=== PATIENT | female | born 1945 | race Caucasian/White ===

== ENCOUNTER → 2023-11-15 13:08 | Outpatient (REF) | payer MEDICARE, OTHER, SELFPAY | LOC: RAD 13:08 | PROVIDERS: ATTENDING PHYSICIAN Surgery Vascular Surgery; FAMILY PHYSICIAN Family Medicine | DX: I65.23 Occlusion and stenosis of bilateral carotid arteries (principal) | CPT/HCPCS: 93880 ==

== ENCOUNTER → 2023-12-25 09:47 | Outpatient (REF) | payer MEDICARE, OTHER, SELFPAY | LOC: RAD 09:47 | PROVIDERS: ATTENDING PHYSICIAN Family Medicine | DX: K58.0 Irritable bowel syndrome with diarrhea (principal) | CPT/HCPCS: 74176 ==

== ENCOUNTER 2024-01-10 12:13 | Emergency (ER) | payer MEDICARE, OTHER, SELFPAY ==
[2024-01-10 12:23] VITALS: BP 169/73
--- NOTE | 2024-01-10 21:24 | ED.MUSCINJ ---
HPI-Injury
General
Chief Complaint: Musculo-Skeletal Complaint
Source: patient
Exam Limitations: none
Time Seen by Provider: 01/10/24 13:15
Nursing documentation reviewed up to this point in time: agreed with
Travel History
Have you had any contact with someone who has COVID-19?: No
Do you have any symptoms of coronavirus? Fever > 100 degrees, chills, cough, shortness of breath, sore throat, loss of taste or smell, muscle aches, or headache?: No
History of Present Illness-Injury
Is this injury a work related problem?: No
Is pt an associate of [facility]?: No
Initial Injury comments:
Patient to ED wtih complaint of left knee. States she went dancing on this weekend and felt a pop and pain to her knee while walking to dance floor. No prior history of same. Brought to ED by spouse for eval.
Past History
Past History
ED Past Medical History: HTN, Hypercholesterolemia and Other
ED Past Surgical History: Gynecological and Other
Social History
Tobacco: Non-smoker
Alcohol: None
Drug: None
Personal:
Living: with family
Employment: Retired
Family History
Family History: CAD (Mother with coronary artery disease in her 60s however she was obese and a smoker)
Review of Systems
Review of Systems
Allergies reviewed?: Yes
All Other Systems: ROS reviewed and negative except as documented in HPI and ROS
Constitutional: Reports no symptoms
Musculoskeletal: Reports joint pain (Pain to left knee)
Skin: Reports no symptoms
Neurological: Reports no symptoms
Psychiatric: Reports no symptoms
Musculoskeletal Injury Exam
Musculoskeletal Injury Exam
Left Knee:
Pain with Movement?: Moderate
Tender to palpation?: Moderate
Soft tissue swelling?: None
External deformity and angulation?: None
Joint effusion?: None
Contusion?: None
Hematoma-local bleeding into tissue?: None
Strain- Sprain- Tear (Connective tissue injury)?: Moderate
Crepitus with movement?: No
Joint instability?: No
Malalignment/deformity?: No
Range of motion: Limited
Distal skin color and temperature: normal-warm & good color
Capillary Refill: normal
Normal distal neurovascular exam?: Yes
Phy Exam
General Physical Exam
General Presentation: well appearing and no apparent distress
General age: appears stated age
General Skin: warm and dry
General Habitus: normal
General Mental: alert
Musculoskeletal Exam
Musculoskeletal Exam: neuro vasc intact
Skin Exam
Skin Exam: normal color, warm/dry and no rash
Psychiatric Exam
Psychiatric Exam: normal mood/affect
Injury Course
Orders/Labs/Results
Orders:
Orders
01/10/24 12:25
Knee, Left 4 or More Views [CR Knee - Left 4 Or More View*] Urgent
Comment:
Reason For Exam: pain/injury
01/10/24 14:59
Knee Immobilizer Left-Treatmen ONCE
*Radiology
Radiology exam reviewed: radiology read reviewed
*Pulse Oximetry
Patient hypoxic: no
*Critical Care Note
Total Time (30-74mins, 75-104mins- exclusive of procedures): Not Applicable
ED Attending Note
-
Portions of this chart may have been created with voice recognition software.� Occasional wrong word or��sound alike� substitutions may have occurred due to the inherent limitations of voice recognition software.
Discharge Plan
Departure
Patient Disposition: Home (Routine Discharge)
Date of Disposition: 01/10/24
Time of Disposition: 14:59
Patient with high blood pressure during this ER visit?: No
Condition: Good
Covid-19: Not Applicable
Discharge Problem:
Knee sprain
Instructions: Knee Immobilizer (DC), Knee Sprain (DC), Ibuprofen, Using Cold for Pain
Prescriptions:
No Action
Fish Oil Capsule
1,200 mg PO DAILY
rosuvastatin 5 mg Tablet
5 mg PO DAILY
berberine-herbal comb no.18 Capsule
PO DAILY
Referrals:
Mikaela Rae DO [Active] - Next open appointment
Jim Contreras DO [Family Provider] -
Interventions
Interventions:
*Risk Screen - Suicide Last Done: 01/10/24 12:23
*Neglect/Abuse Screening Last Done: 01/10/24 12:23
*ED COVID-19 Vaccine History Last Done: 01/10/24 12:23
*Nursing Disposition Last Done: 01/10/24 15:18
ED-Musculoskeletal Assessment Last Done: 01/10/24 15:17
Discharge Date and Time
Discharge Date/Time: 01/10/24 15:18
Print Language: SLOVENIAN
== END 2024-01-10 15:18 | disposition home or self-care (01) ==
LOC: EMR 12:13
PROVIDERS: EMERGENCY PHYSICIAN Emergency Medicine; FAMILY PHYSICIAN Family Medicine
DX: S83.92XA Sprain of unspecified site of left knee, initial encounter (principal); X58.XXXA Exposure to other specified factors, initial encounter; Y93.01 Activity, walking, marching and hiking; I10 Essential (primary) hypertension; E78.00 Pure hypercholesterolemia, unspecified; Z86.73 Personal history of transient ischemic attack (TIA), and cerebral infarction without residual deficits
CPT/HCPCS: 99283; 29505; 73564

== ENCOUNTER → 2024-01-21 16:01 | Outpatient (REF) | payer MEDICARE, OTHER, SELFPAY | LOC: PAVMRI 16:01 | PROVIDERS: ATTENDING PHYSICIAN Physician Assistant; FAMILY PHYSICIAN Family Medicine | DX: M25.562 Pain in left knee (principal) | CPT/HCPCS: 73721 ==

== ENCOUNTER → 2024-02-02 12:57 | Outpatient (REF) | payer MEDICARE, OTHER, SELFPAY | LOC: RCS 12:57 | PROVIDERS: ATTENDING PHYSICIAN Orthopaedic Surgery | DX: Z01.818 Encounter for other preprocedural examination (principal) | CPT/HCPCS: 93005 ==

== ENCOUNTER → 2024-02-25 16:00 | Outpatient (REF) | payer MEDICARE, OTHER, SELFPAY | LOC: DHSLP 16:00 | PROVIDERS: ATTENDING PHYSICIAN Internal Medicine Critical Care Medicine; FAMILY PHYSICIAN Family Medicine | DX: G47.33 Obstructive sleep apnea (adult) (pediatric) (principal) | CPT/HCPCS: 95806 ==

== ENCOUNTER → 2024-07-28 10:47 | Day surgery (SDC) | payer MEDICARE, OTHER, SELFPAY ==
[2024-07-28 11:50] LABS: Hematocrit 40.8 % (37.0-47.0); Mean Corp Hgb Conc. 31.9 g/dL (33.0-37.0); Mean Corpuscular Hgb 29.2 pg (27.0-31.0); Mean Corpuscular Volume 91.7 fL (81.0-99.0); Mean Platelet Volume 8.6 fL (7.4-10.4); Platelet Count 334 10^3/uL (130-400); Red Blood Cell Count 4.45 10^6/uL (4.20-5.40); Red Cell Dist. Width 12.7 % (11.5-14.5); White Blood Cell Count 5.3 10^3/uL (4.8-10.8)
== END ==
LOC: SDSPAT 10:47
PROVIDERS: ATTENDING PHYSICIAN Orthopaedic Surgery; FAMILY PHYSICIAN Family Medicine
DX: Z01.810 Encounter for preprocedural cardiovascular examination (principal); Z01.812 Encounter for preprocedural laboratory examination
CPT/HCPCS: 93005; 36415; 85027

== ENCOUNTER 2024-08-10 06:32 | Day surgery (SDC) | payer MEDICARE, OTHER, SELFPAY ==
[2024-07-28 11:08] VITALS: BMI 24.1
[2024-08-10 10:24] VITALS: BMI 24.1
[2024-08-10 10:25] VITALS: BP 185/97
[2024-08-10] MEDS: CELEBREX 200 MG PO (10:44)
[2024-08-10] MEDS: TYLENOL 1000 MG PO (10:44)
[2024-08-10] MEDS: NORMOSOL-R/PLASMALYTE-A 1000 IV (10:45)
[2024-08-10 14:00] VITALS: BP 157/73; BP 185/97
[2024-08-10 14:01] VITALS: BP 157/73
[2024-08-10 15:00] VITALS: BP 134/70
[2024-08-10 15:25] VITALS: BP 128/74
== END 2024-08-10 16:26 | disposition home or self-care (01) ==
LOC: SDS 06:32
PROVIDERS: ATTENDING PHYSICIAN Orthopaedic Surgery; FAMILY PHYSICIAN Family Medicine
DX: M75.112 Incomplete rotator cuff tear or rupture of left shoulder, not specified as traumatic (principal)
CPT/HCPCS: 29827; C1713

== ENCOUNTER 2024-09-04 22:25 | Observation (INO) | payer MEDICARE, OTHER, SELFPAY ==
[2024-09-04] VITALS (26 sets, daily range): BP systolic 123–222; BP diastolic 43–156; BMI 25.0
--- NOTE | 2024-09-04 15:21 | ED.GENMED ---
ED Provider Triage
<Shailesh Pena PA-C - Last Filed: 09/04/24 15:22>
-
Patient seen by provider in Triage?: Seen in Triage
Attestation: A medical screening examination has been initiated by a qualified medical provider. Based on the assessment performed at this time, it has been determined that an emergent medical condition may exist and the patient has been informed
that further medical evaluation and possible additional diagnostic testing may be needed.
HPI: 78-year-old female on telmisartan 40 mg daily presents with dizziness and elevated blood pressure onset at 8 AM when she woke up. She feels that she is wobbly from [id number] when she walks and turns her head too quickly she feels dizzy.
There is no aphasia or dysarthria at triage. Blood pressure high at triage 222/134. At this point we are out of TNK window ordered CT scan of head labs EKG and requested next to be seen given her elevated blood pressure
GENERAL: Alert , in no apparent distress
EYE: No visual abnormalities.
NECK: Trachea midline
ENT: No visible abnormalities.
LUNGS: No acute respiratory distress
NEUROLOGICAL: Alert and oriented
SKIN: Skin intact. No visible changes.
MUSCULOSKELETAL: Moving extremities normally
PSYCH: Normal and appropriate interaction.
This is a medical evaluation conducted in person to initiate diagnostic evaluation and provide initial therapeutics. Please see further documentation by the treating clinician.
History of Present Illness
<Shailesh Pena PA-C - Last Filed: 09/04/24 15:22>
General
Chief Complaint: Blood Pressure Problem
Time Seen by Provider: 09/04/24 15:30
<Jp Parks MD - Last Filed: 09/04/24 20:28>
General
Source: patient and spouse
Exam Limitations: none
Nursing documentation reviewed up to this point in time: agreed with
History of Present Illness
History of Present Illness:
78-year-old female with a past medical history of hypertension, hyperlipidemia who presents to the emergency department with her for evaluation of dizziness. Patient reports symptoms started when she woke up this morning. She says she woke
up at around 8 AM and felt 'not quite right'�she describes feeling wobbly and having significant nausea with head movement�'it felt like I was shaking my head [id number] but I was not.' She denies any associated headache. She denies any loss of
vision. She denies any speech issues. No facial droop noted. No weakness or numbness in extremities reported. She denies having had similar symptoms in the past. She says she checked her blood pressure and was elevated to 160s; she decided to
take an extra dose of her telmisartan at around 11 AM but blood pressure was actually increasing and symptoms were not resolving and so she came to the ER to be evaluated.
Past History
<Shailesh Pena PA-C - Last Filed: 09/04/24 15:22>
Past History
ED Past Medical History: HTN, Hypercholesterolemia and Other
ED Past Surgical History: Gynecological and Other
Social History
Tobacco: Non-smoker
Alcohol: None
Drug: None
Personal:
Living: with family
Employment: Retired
Family History
Family History: CAD (Mother with coronary artery disease in her 60s however she was obese and a smoker)
Review of Systems
<Jp Parks MD - Last Filed: 09/04/24 20:28>
Review of Systems
All Other Systems: ROS reviewed and negative except as documented in HPI and ROS
Constitutional: Denies fever
Respiratory: Denies cough or trouble breathing
Cardiac: Denies chest pain or palpitations
ABD/GI: Reports nausea; Denies abdominal pain or vomiting
: Denies flank pain
Musculoskeletal: Denies neck pain or back pain
Neurological: Reports dizzy; Denies headache, weakness or numbness
Phy Exam
<Jp Parks MD - Last Filed: 09/04/24 20:28>
Physical Exam
Physical Exam:
General: Awake, alert, oriented x3; no acute distress
Head: Normocephalic, atraumatic
Eyes: Conjunctiva normal, EOMI with rightward nystagmus, no rotary or vertical nystagmus
Throat: Airway intact, handling secretions
Neck: Trachea midline, supple without meningismus
Lungs: Clear to auscultation bilaterally, no wheezing, rales, rhonchi
Heart: Tachycardia with regular rhythm, no murmurs, gallops, or rubs
Abd: Soft, non distended, nontender
Neuro: Cranial nerves intact 2 through 12, speech fluid no dysarthria or aphasia, no limb ataxia, motor and sensory intact upper and lower extremities
Skin: no rash
Extremities: Warm and well-perfused with brisk capillary refill
Scores
<Jp Parks MD - Last Filed: 09/04/24 20:28>
NIH Stroke Score
Level of Consciousness: 0 - Alert
LOC Questions: 0-Answers both correctly
LOC Commands: 0-Performs both correctly
Best Horizontal Gaze: 0-Normal
Visual Herrera: 0=Normal, no visual loss
Facial Palsy: 0=Normal, symmetrical
Motor - Right Arm: 0=No drift 10 seconds
Motor - Left Arm: 0=No drift 10 seconds
Motor - Right Le-No drift 5 seconds
Motor - Left Le-No drift 5 seconds
Limb Ataxia: 0-Absent
Sensation: 0-Normal
Best Language: 0-No aphasia
Dysarthria: 0-Normal
Extinction and Inattention: 0-No abnormality
Total Score:: 0
Thrombolytic Contraindication
Inclusion and Exclusion criteria reviewed: Yes
Reasons for NON-Tx with Thrombolytics ABSOLUTE Exclusions: Greater than 4.5 hrs from onset of sxs
Heart Failure Risk
Heart Failure Risk Score: Not Applicable
Heart Score for Chest Pain Patients
STEMI patient?: Not applicable
Withdrawal Assessment of Alcohol
Withdrawal Assessment Completed?: Not applicable
Course
<Shailesh Pena PA-C - Last Filed: 09/04/24 15:22>
Orders/Labs/Results
Orders:
Orders
09/04/24 15:17
Electrocardiogram (*1) Urgent
Reason for Study: Vertigo / Dizzy
EKG- Treatment ONCE
09/04/24 15:47
NEUROLOGY CONSULT Urgent
Consulting Provider: Jesse Lipscomb
Was physician already notified: Yes
Labetalol HCl [Trandate] 10 mg IV NOW STA
09/04/24 15:53
Cardiovascular Evaluation Urgent
Comment: ADD ON
Complete Blood Count/With Diff Urgent
Comprehensive Metabolic Panel Urgent
Erythrocyte Sed Rate Urgent
Comment: ADD ON
Ferritin Routine
Comment: ADD ON
Folate Routine
Comment: ADD ON
TSH Reflex To Free T4 Routine
Comment: ADD ON
Vitamin B12 Routine
Comment: ADD ON
09/04/24 16:23
CT Head & Neck Angio W/wo IV Routine
Comment:
Reason For Exam: stenosis
MR Brain Without Contrast Routine
Comment:
Reason For Exam: dizziness
Recent pill cam endoscopy?: No
09/04/24 16:24
Add On- LAB Routine
Comments:: Please add to today's labs or draw as routine
Tests Added?: TSH reflex, Ferritin, Folate, Vit. B12, ESR
09/04/24 17:04
diazePAM [Valium Injection] 2 mg IV NOW STA
09/04/24 19:16
Add On- LAB Urgent
Tests Added?: lipid profile
09/04/24 20:19
Aspirin 325 mg PO NOW STA
Abnormal Lab Results
09/04/24 09/04/24
15:20 15:53
MCHC 32.4 L g/dL
(33.0-37.0)
Lymphocytes % 20.4 L %
(20.5-51.1)
ESR 23 H mm/hour
(0-20)
Creatinine 0.5 L mg/dL
(0.6-1.0)
Glucose 148 H mg/dl
(70-99)
Triglycerides 230 H mg/dl
(10-149)
Total Cholesterol 370 H mg/dl
(50-199)
VLDL Cholesterol, Calc 46 H mg/dl
(0-30)
POC Glucose 131 H mg/dl
(70-99)
09/04/24 15:53
09/04/24 15:53
Vital Signs
Initial and Last Documented VS:
Initial Vital Signs
Temp Pulse Resp BP Pulse Ox
36.8 C 108 18 222/134 97
09/04/24 15:15 09/04/24 15:15 09/04/24 15:15 09/04/24 15:15 09/04/24 15:15
Last Documented Vital Signs
Temp Pulse Resp BP Pulse Ox
36.8 C 71 12 132/58 98
09/04/24 15:15 09/04/24 17:30 09/04/24 17:30 09/04/24 17:30 09/04/24 17:30
<Jp Parks MD - Last Filed: 09/04/24 20:28>
Orders/Labs/Results
Orders:
Orders
09/04/24 15:17
Electrocardiogram (*1) Urgent
Reason for Study: Vertigo / Dizzy
EKG- Treatment ONCE
09/04/24 15:47
NEUROLOGY CONSULT Urgent
Consulting Provider: Jesse Lipscomb
Was physician already notified: Yes
Labetalol HCl [Trandate] 10 mg IV NOW STA
09/04/24 15:53
Cardiovascular Evaluation Urgent
Comment: ADD ON
Complete Blood Count/With Diff Urgent
Comprehensive Metabolic Panel Urgent
Erythrocyte Sed Rate Urgent
Comment: ADD ON
Ferritin Routine
Comment: ADD ON
Folate Routine
Comment: ADD ON
TSH Reflex To Free T4 Routine
Comment: ADD ON
Vitamin B12 Routine
Comment: ADD ON
09/04/24 16:23
CT Head & Neck Angio W/wo IV Routine
Comment:
Reason For Exam: stenosis
MR Brain Without Contrast Routine
Comment:
Reason For Exam: dizziness
Recent pill cam endoscopy?: No
09/04/24 16:24
Add On- LAB Routine
Comments:: Please add to today's labs or draw as routine
Tests Added?: TSH reflex, Ferritin, Folate, Vit. B12, ESR
09/04/24 17:04
diazePAM [Valium Injection] 2 mg IV NOW STA
09/04/24 19:16
Add On- LAB Urgent
Tests Added?: lipid profile
09/04/24 20:19
Aspirin 325 mg PO NOW STA
Abnormal Lab Results
09/04/24 09/04/24
15:20 15:53
MCHC 32.4 L g/dL
(33.0-37.0)
Lymphocytes % 20.4 L %
(20.5-51.1)
ESR 23 H mm/hour
(0-20)
Creatinine 0.5 L mg/dL
(0.6-1.0)
Glucose 148 H mg/dl
(70-99)
Triglycerides 230 H mg/dl
(10-149)
Total Cholesterol 370 H mg/dl
(50-199)
VLDL Cholesterol, Calc 46 H mg/dl
(0-30)
POC Glucose 131 H mg/dl
(70-99)
09/04/24 15:53
09/04/24 15:53
Vital Signs
Initial and Last Documented VS:
Initial Vital Signs
Temp Pulse Resp BP Pulse Ox
36.8 C 108 18 222/134 97
09/04/24 15:15 09/04/24 15:15 09/04/24 15:15 09/04/24 15:15 09/04/24 15:15
Last Documented Vital Signs
Temp Pulse Resp BP Pulse Ox
36.8 C 71 12 132/58 98
09/04/24 15:15 09/04/24 17:30 09/04/24 17:30 09/04/24 17:30 09/04/24 17:30
<Jp Parks MD - Last Filed: 09/04/24 20:28>
MDM/Problems Addressed
Differential Diagnosis Includes:
Peripheral vertigo�BPPV, labyrinthitis, eustachian tube dysfunction, etc; central vertigo must be considered causes would include brain mass, brain bleed, ischemic stroke, dissection, hypertensive crisis, etc
MDM/Problems Addressed:
78-year-old female presents to the emergency room for evaluation of vertiginous symptoms that started this morning when she woke up around 8 AM. Associated with marked hypertension. Blood pressure 222/134 on arrival, heart rate 108. Rest of
vitals acceptable. Physical exam as above. With wake-up symptoms at 8 AM patient is outside window for tenecteplase even in case of stroke�for this reason no stroke alert was called. Her clinical picture actually seems more consistent with
peripheral vertigo with clear positional component and isolated unidirectional nystagmus however with her marked hypertension and stroke risk factors I do think this diagnosis needs to be considered. Will plan to place an IV check labs including a
CBC and a CMP. Check an EKG. Check CT head. Will treat blood pressure and provide IV Valium for treatment as well. Case discussed with neurology for consultation.
Discussed with neurology who added CTA of the head and neck, agreed with blood pressure control, recommended aspirin pending results of CT, admission to rule out stroke.
CTA head and neck negative for any acute pathology. Blood pressure has greatly improved but not normalized down to 154/100. Will plan to admit for blood pressure monitoring, MRI rule out stroke. Will dose with aspirin. Case discussed with
hospitalist for admission.
Chronic conditions affecting care:
Hypertension, hyperlipidemia
Acute Exacerbation and/or Progression of Chronic Illness:
Acutely hypertensive treated with labetalol
Acute Exacerbation and/or Progression of Chronic Illness: HTN
<Jp Parks MD - Last Filed: 09/04/24 20:28>
*Radiology
Radiology exam reviewed: radiology read reviewed
*Pulse Oximetry
Patient hypoxic: no
*EKG
Interpreted by ED Provider?: Yes
Heart Rate: 85
Rate: normal
Rhythm: sinus
[place]: left axis deviation
Interval: normal interval
QRS Pattern: left vent hypertrophy
Ischemia: no ischemia
*Critical Care Note
Total Time (30-74mins, 75-104mins- exclusive of procedures): 30
comment:
Critical care statement: A total of 30 minutes of critical care time was provided for this patient. This includes management of unstable vital signs, evaluation of the patient at bedside, frequent reassessment, discussion with
consultants/hospitalist, and review of pertinent medical records. This time was separate from time utilized to perform any aforementioned documented procedures
Data Reviewed
Review of Other/Old Records Reveals: Labs and Records
Source: patient and spouse
<Jp Pakrs MD - Last Filed: 09/04/24 20:28>
Patient Management
Discussion with other providers: Hospitalist (Discussed with hospitalist) and It Application Development Manager (Discussed with neurology)
Escalation/DeEscalation of care consider admission/obs:
Admission indicated
ED Attending Note
<Shailesh Pena PA-C - Last Filed: 09/04/24 15:22>
-
Portions of this chart may have been created with voice recognition software.� Occasional wrong word or��sound alike� substitutions may have occurred due to the inherent limitations of voice recognition software.
Discharge Plan
Departure
Patient Disposition: Admit
Date of Disposition: 09/04/24
Time of Disposition: 20:27
Admit to doctor: Hugh
Presentation/result/management discussed w/ accepting MD/DO: Hospitalist
Discharge Problem:
Dizziness, Hypertension
Prescriptions:
No Action
telmisartan 40 mg tablet
20 mg PO HS
melatonin 10 mg Tablet
20 mg PO DAILY
arnica
1 pellet sublingual PRN PRN (Reason: pain)
Referrals:
Jim Contreras DO [Family Provider] -
Interventions
Interventions:
*Risk Screen - Suicide Last Done: 09/04/24 15:15
*General Assessment Last Done: 09/04/24 16:25
*Neglect/Abuse Screening Last Done: 09/04/24 15:15
ED- Cardiac Assessment Last Done: 09/04/24 16:25
ED- Neurological Assessment Last Done: 09/04/24 16:25
ED- Pulmonary Assessment Last Done: 09/04/24 16:25
Discharge Date and Time
Print Language: [place]THER[place] IRISH
[2024-09-04 15:22] LABS: Glucose - Point of Care 131 mg/dl (70-99)
--- NOTE | 2024-09-04 15:49 | CON.NEURO ---
Neuro Assessment/Plan
Assessment
Acute onset of dizziness with accelerated hypertension
Differential diagnosis includes hypertensive encephalopathy, cerebellar acute ischemic stroke
Plan
would check CT of head as planned
Check CTA head and neck to evaluate posterior circulation
Would attempt to lower the patient's blood pressure by approximately 20% over the first 24 hours
Will add aspirin, single dose dependent on CAT scan of the head and CTA results
Follow lipid profile
Rehabilitation evaluations
Provide medical educational materials
Goal of normoglycemia
DVT prophylaxis
Will follow pending results
Consultation
Order
Date of Consultation: 09/04/24
Requesting Provider: ED Physician
Reason for Consult: Dizziness
Subjective/Objective
Subjective Data
Date of Service: September 04, 2024
Patient was evaluated by my former esteemed colleague () in April 2018 due to an episode of visual loss in January 2018. The patient at that time underwent carotid ultrasound which suggested significant stenosis of bilateral carotid arteries.
The patient underwent repeated carotid ultrasound which did not demonstrate significant narrowing in 2021. The patient however was initiated on aspirin in 2017 and subsequently this medication was discontinued.
Today, upon awakening, the patient became aware of dizziness (0800 hrs.), was OK at 0330.
Patient checked and re-checked BP, finding that it was elevated. She took extra dose of anti-HTN medication due to dizziness and elevated BP. Has improved over time since onset, worse with head movement.
Associated symptoms none.
Prior episodes, none.
Objective Data
Vital Signs
Temp Pulse Resp BP Pulse Ox
36.8 C 98 18 222/134 97
09/04/24 15:15 09/04/24 15:15 09/04/24 15:15 09/04/24 15:15 09/04/24 15:15
Patient Allergies
No Known Allergies Allergy (Verified 08/10/24 10:18)
CVA Assessment
Onset of Stroke Symptoms
Onset of symptoms known: No
Date of onset of symptoms: 09/04/24
Time of onset of symptoms: 08:00
Time pt last seen normal is known: Yes
Date last time pt seen normal: 09/04/24
Time last time pt seen normal: 03:30
NIH Stroke Score
Level of Consciousness: 0 - Alert
LOC Questions: 0-Answers both correctly
LOC Commands: 0-Performs both correctly
Best Horizontal Gaze: 0-Normal
Visual Herrera: 0=Normal, no visual loss
Facial Palsy: 0=Normal, symmetrical
Motor - Right Arm: 0=No drift 10 seconds
Motor - Left Arm: 0=No drift 10 seconds
Motor - Right Le-No drift 5 seconds
Motor - Left Le-No drift 5 seconds
Limb Ataxia: 0-Absent
Sensation: 0-Normal
Best Language: 0-No aphasia
Dysarthria: 0-Normal
Extinction and Inattention: 0-No abnormality
Total Score:: 0
Tenecteplase Contraindications
Inclusion and Exclusion criteria reviewed: Yes
Review of Systems
-
History Source: Patient and Family
All other systems: Reviewed and negative
EENT: Negative Decreased Vision or Swallowing Difficulty
Respiratory: Negative Trouble Breathing
Cardiac: Negative Chest Pain
Abdomen/GI: Nausea; Negative Vomiting or Incontinence of Stool
Genitourinary: Negative Incontinence
Musculoskeletal: Negative Back Pain or Neck Pain
Neuro: Dizzy and Other (no hearing or tinnitus); Negative Headache or Weakness
Physical Exam
-
General: No Apparent Distress and Appears Stated Age
Eyes: OU Absent Papilledema, Able to visualize OU, Round OU, [place] Conjunctivae and No Ptosis
HEENT: Anicteric and Moist Mucous Membranes
Neck: Full Range of Motion
Respiratory: No Dyspnea
Cardiac: No JVD
GI: Non-distended
Skin: Unremarkable
Extremities: No Clubbing, No Cyanosis and No Edema
Psych: Intact Judgement/Insight
Extended Neurological Exam
Mood & Affect: Mood Unremarkable and Affect Unremarkable
Attention Span & Concentration: Awake, Alert, Interactive and No Difficulty with 2 Step Request
Memory: Unremarkable
Tremor: Hand Tremor Absent and Head Tremor Absent
Speech: Quality Unremarkable and Quantity Unremarkable
Cranial Nerve II: Left Eye: Pupillary Reactivity Unremarkable, Pupillary Size Unremarkable and Visual Herrera Intact
Cranial Nerve II: Right Eye: Pupillary Reactivity Unremarkable, Pupillary Size Unremarkable and Visual Herrera Intact
Cranial Nerves III, IV, : Extraocular Movement: Extraocular Movement Full in all Directions
Cranial Nerve VII: Facial Symmetry: Normal Facial Symmetry
Cranial Nerve VIII: Hearing: Unremarkable Hearing to Normal Conversational Volume (And to direct testing)
Cranial Nerves IX, X: Palate Movement: Palate Elevation Symmetric
Cranial Nerve XI: Shoulder Shrug: Unremarkable
Cranial Nerve XII: Tongue Protusion: Midline
Muscle Strength, Overall: Full Throughout
Muscle Bulk & Tone: Bulk Unremarkable and Tone Unremarkable
Pronator Drift: No Drift in Upper Extremities
Deep Tendon Reflexes: Unremarkable Throughout
Touch Sensation: Unremarkable
Coordination: Lserrr-oott-gyanfl Testing Unremarkable
Babinski Sign: Absent Bilaterally
Data Reviewed
-
CT-A: Ordered
CT Head: Pending
Labs: Ordered and Report Reviewed
Reviewed with: Physician, Patient and Family
Old Records: Summarized
Medications
-
Home Medications
�Medication �Instructions �Recorded
melatonin 10 mg tablet 20 mg PO DAILY 08/03/24
telmisartan 40 mg tablet 20 mg PO HS 08/03/24
arnica 1 pellet sublingual PRN PRN pain 08/10/24
Past History
Past History
ED Past Medical History: HTN, Hypercholesterolemia, Other (Osteoporosis, obstructive sleep apnea, COVID-19, transient ischemic attack January 2018, carpal tunnel syndrome steroid injection) and Other (leg cramping, sarcoidosis)
ED Past Surgical History: Gynecological and Orthopedic (Hip tumor removal 1966, right labral debridement, left shoulder arthroscopy August 2024)
Social History
Tobacco: Non-smoker
Alcohol: None
Drug: None
Personal:
Living: with family
Employment: Retired
Family History
Family History: CAD (Mother with coronary artery disease in her 60s however she was obese and a smoker)
[2024-09-04] MEDS: TRANDATE 10 MG IV (15:58)
[2024-09-04 16:15] LABS: % Basophils 0.4 % (0-2); % Eosinophils 1.1 % (0-6); % Immature Granulocytes 0.3 % (0-0.5); % Lymphocytes 20.4 % (20.5-51.1); % Monocytes 6.8 % (1.7-9.3); Absolute Eosinophils 0.1 10^3/uL (0-0.7); Absolute Lymphocytes 1.4 10^3/uL (1.2-3.4); Absolute Monocytes 0.5 10^3/uL (0.1-0.6); Absolute Neutrophils 4.9 10^3/uL (1.4-6.5); Hematocrit 41.7 % (37.0-47.0); Hemoglobin 13.5 g/dL (12.0-16.0); Mean Corp Hgb Conc. 32.4 g/dL (33.0-37.0); Mean Corpuscular Hgb 29.1 pg (27.0-31.0); Mean Corpuscular Volume 89.9 fL (81.0-99.0); Mean Platelet Volume 8.5 fL (7.4-10.4); Nucleated Red Blood Cells % 0 %; Platelet Count 273 10^3/uL (130-400); Red Blood Cell Count 4.64 10^6/uL (4.20-5.40); Red Cell Dist. Width 13.2 % (11.5-14.5)
[2024-09-04 16:42] LABS: ALT (SGPT) 20 U/L (0-35); AST (SGOT) 21 U/L (14-36); Albumin 4.8 g/dl (3.5-5.0); Alkaline Phosphatase 118 U/L (38-126); Blood Urea Nitrogen 9 mg/dl (7-17); Carbon Dioxide 23 mmol/L (22-30); Chloride 101 mmol/L (98-107); Glucose 148 mg/dl (70-99); Potassium 4.3 mmol/L (3.5-5.1); Sodium 136 mmol/L (135-145); Total Bilirubin 0.7 mg/dl (0.2-1.3); Total Protein 7.8 g/dl (6.3-8.2); eGFR > 60.00
[2024-09-04 16:55] LABS: Erythrocyte Sed Rate 23 mm/hour (0-20)
[2024-09-04] MEDS: VALIUM INJECTION 2 MG IV (17:12)
[2024-09-04 19:04] LABS: TSH Reflex To Free T4 1.47 uIU/ml (0.47-4.68)
[2024-09-04 19:08] LABS: Ferritin 62.1 ng/ml (11.1-264.0)
[2024-09-04 19:23] LABS: Vitamin B12 467 pg/ml (239-931)
[2024-09-04 19:58] LABS: HDL Cholesterol 60 mg/dl; Triglyceride 230 mg/dl (10-149); Very Low Density Lipoprotein 46 mg/dl (0-30)
[2024-09-04 20:08] LABS: LDL Cholesterol, Calculated 264 mg/dl; Total Cholesterol 370 mg/dl (50-199)
[2024-09-04] MEDS: ASPIRIN 325 MG PO (20:36)
--- NOTE | 2024-09-04 21:12 | HPS.HSE ---
Family Physician
-
Family Physician: Jim Contreras
Chief Complaint
-
Dizziness and Elevated Blood Pressure
History of Present Illness
Patient is a 78 y/o female past medical history of hypertension, hyperlipidemia and sarcoidosis who presents with dizziness and elevated blood pressure. Patient reports she awoke this morning feeling unwell. She reports feeling very off balance
and notes that if she turned her head too quickly she felt dizziness. Due to feeling unwell she took her blood pressure which was very elevated. She took an extra dose of her usual blood pressure, but her BP continued to rise prompting her to come
to the emergency department for evaluation. While in the ED patient was given a dose of labetalol and her BP significantly improved. Patient notes with improvement in her BP her symptoms have improved. She denies focal numbness, tingling
weakness. She denies any prior history of stroke.
Medical History
Past Medical History
Past Medical History: Reports Other
Additional Past Medical History:
Transient Ischemic Attack
Essential Hypertension
Hyperlipidemia
Sarcoidosis / Restrictive Lung Disease
Obstructive Sleep Apnea
Past Surgical History: Reports Other
Additional Past Surgical History:
Hysterectomy
Bilateral Shoulder Arthroscopy
Left Rotator Cuff Repair
Right Hip Benign Tumor Resection
Social History
Tobacco: Non-smoker
Alcohol: Occasional
Family History
Family History: Not pertinent
Allergies / Home Medications
Allergies reflects when Allergies were last updated in [facility].
Home Medications with original date entered in [facility]
Allergy/Medication List:
Allergies
Allergy/AdvReac Type Severity Reaction Status Date / Time
No Known Allergies Allergy Verified 08/10/24 10:18
Home Medications
telmisartan 40 mg tablet 20 mg PO HS 08/03/24
Review of Systems
-
A 12 point ROS was completed and negative except as noted: Yes
Constitutional: Denies Fever or Chills
Respiratory: Denies Cough or Trouble Breathing
Cardiac: Denies Chest Pain or Palpitations
Neurological: Reports See HPI
Physical Exam
Vital Signs
Vital Signs
Temp Pulse Resp BP Pulse Ox
98.2 F 71 12 132/58 98
09/04/24 15:15 09/04/24 17:30 09/04/24 17:30 09/04/24 17:30 09/04/24 17:30
Physical Exam
General: Comfortable and Conversant
HEENT: Anicteric, Moist mucous membranes and PERRLA (Horizontal nystagmus with lateral gaze to the left)
Respiratory: Clear and Non Labored Respirations
Cardiac: S1/S2 and Regular Rhythm
GI: Soft and Non Tender
Rectal: Deferred by Provider
Musculoskeletal: No Clubbing, No Cyanosis and No Edema
Skin: Warm and Dry
Neuro: Awake, Alert, Oriented, No Motor Deficits and Other (Intact finger to nose); No Slurred Speech or Facial Droop
Psych: Calm
Laboratory Results
-
09/04/24 15:53
09/04/24 15:53
Laboratory Results
Total Bilirubin 0.7 mg/dl (0.2-1.3) 09/04/24 15:53
AST 21 U/L (14-36) 09/04/24 15:53
ALT 20 U/L (0-35) 09/04/24 15:53
Alkaline Phosphatase 118 U/L (38-126) 09/04/24 15:53
Data Reviewed
-
CT Scan: Report Reviewed by me
Lab Data: Labs Reviewed by me
Impression/Plan
-
Dizziness, possible acute cerebellar ischemic stroke vs hypertensive encephalopathy vs BPPV
-Consult Neurology
-Patient given aspirin 325mg in ED - Continue aspirin 81mg Daily
-Start Lipitor 40mg HS
-Check Brain MRI
-Consult PT/OT and Speech
Uncontrolled Hypertension
-Plan to allow for permissive hypertension given concern for possible acute stroke
-Resume telmisartan tomorrow evening
-Continue hydralazine prn
Hyperlipidemia
-Patient previously on cholesterol medication which she stopped
-LDL 264 - Start Lipitor 40mg HS
Other Noted History
-Sarcoidosis / Restrictive Lung Disease - Not currently on any inhalers
-Obstructive Sleep Apnea - Patient no longer on CPAP
DVT proph: SCDs
Code Status: Full Code
[2024-09-04 22:09] LABS: Folate 12.5 ng/ml (2.76-20)
--- NOTE | 2024-09-04 22:27 | W.PN.UPDATE ---
Update Note
Progress Note Update
Patient seen in conjunction with CHAPARRITA. I agree with the findings on history and physical. I concur with the assessment and plan.
Briefly, this is an 8-year-old female with past medical history significant for hypertension for which she takes telmisartan who presents to the emergency department with episode of uncontrolled hypertension at home.
Patient reported to be in usual state of health. She woke up at 3 AM and was fine. When she woke up in the later morning she started having a sensation of dizziness where she felt she was moving although she was standing still and had to hold onto
something for support. She reported nausea without vomiting. She checked her blood pressure and it was elevated to as high as 160s. A repeat blood pressure was as high as 180. She took a second dose of telmisartan in the afternoon with
persistently elevated blood pressure so she came to the emergency department. Patient denied have any headache. She denied any blurry vision or double vision. She denied numbness tingling or weakness in extremities.
She tells me that she been evaluated by bilateral studies in the past but she was unclear why. She stated that she has had episodes of vertiginous symptoms in the past.
She denies having any chest pain. She denies palpitations. She denies any shortness of breath.
In the emergency department she was hypertensive and was given labetalol. By time I saw her blood pressure was down to the 150s systolic. She reports that she is no longer dizzy. Oxygen saturation was also normal on room air. ECG showed a normal
sinus rhythm at a rate of 84. She had a CT angio which shows no dissection aneurysm or bleeding. CBC was unremarkable. Electrolytes were all normal. BUN and creatinine were normal.
Assessment plan
Suspect paroxysmal hypertension possibly secondary to episode of vertigo versus small stroke/tia. Reports generally has controlled blood pressure on atorvastatin and had a very brisk response to labetalol.
Will admit for stroke rule out, patient already seen by neurology with recommendations.
Will follow recommendations. Will add as needed meclizine.
MRI in AM.
Neurochecks
Continue telemetry telmisartan starting tomorrow but for now we will allow for permissive hypertension
Hydralazine as needed
PT OT
DVT PPX -SCDs
Full Code .
--- NOTE | 2024-09-04 23:38 | PTCARENOTE ---
Patient received from ED in stretcher. Ambulated to bed without incident. Patient denies feeling dizzy or lightheaded. Denies pain or headache. Admission completed. NIH score zero. Neurologically intact. Patient and spouse oriented to room and unit.
Plan of care discussed. Call chou within reach. Assessment ongoing
[2024-09-05] VITALS (11 sets, daily range): BP systolic 142–165; BP diastolic 61–83; PULSE 70–84
[2024-09-05 04:20] LABS: Calcium 9.5 mg/dl (8.4-10.2); Carbon Dioxide 27 mmol/L (22-30); Chloride 103 mmol/L (98-107); Estimated Creatinine Clearance 56 ml/min; Glucose 99 mg/dl (70-99); Magnesium 2.2 mg/dl (1.6-2.3); Potassium 4.3 mmol/L (3.5-5.1); Sodium 141 mmol/L (135-145); eGFR > 60.00
[2024-09-05 04:29] LABS: Blood Urea Nitrogen 20 mg/dl (7-17)
[2024-09-05 05:08] LABS: Hepatitis C Antibody Negative (Negative)
--- NOTE | 2024-09-05 06:24 | PTCARENOTE ---
When completing admission assessment/questions patient did bring home BP medication in. Informed patient that this must be taken home by her spouse (present at bedside during admission). Patient stated she was told 'downstairs' that she is allowed
to take her own medications. Informed patient that we will administer medications as ordered by providers. Scheduled and PRN medications for blood pressure discussed with patient.
--- NOTE | 2024-09-05 07:49 | W.PN.NEURO.1 ---
Today's Communication / Plan
-
May attempt to reach normotension from a neurological perspective
May discontinue aspirin
Initiated atorvastatin 80 mg daily based on LDL greater than 70
Neuro Assessment/Plan
Assessment
Acute onset of dizziness with accelerated hypertension
There is no evidence by MRI of brain that the patient has experienced an ischemic lesion and therefore etiology of the patient's dizziness which is now resolved, is most likely her accelerated hypertension which has also resolved
Plan
May attempt to reach normotension from a neurological perspective
May discontinue aspirin
Initiated atorvastatin 80 mg daily based on LDL greater than 70
Rehabilitation evaluations
DVT prophylaxis
Will follow pending results
Subjective/Objective
Subjective Data
Date of Service: September 05, 2024
Improved.
Objective Data
Vital Signs
Temp Pulse Resp BP Pulse Ox
36.7 C 75 14 142/83 99
09/05/24 02:57 09/05/24 06:00 09/05/24 02:57 09/05/24 02:58 09/05/24 02:57
Lab Results
09/04/24 15:53
09/05/24 03:07
Sodium 141 mmol/L (135-145) 09/05/24 03:07
Potassium 4.3 mmol/L (3.5-5.1) 09/05/24 03:07
BUN 20 mg/dl (7-17) H 09/05/24 03:07
Glucose 99 mg/dl (70-99) 09/05/24 03:07
Calcium 9.5 mg/dl (8.4-10.2) 09/05/24 03:07
LDL Cholesterol, Calc Cancelled 09/04/24 16:41
Vitamin B12 467 pg/ml (239-931) 09/04/24 15:53
Patient Allergies
No Known Allergies Allergy (Verified 08/10/24 10:18)
Review of Systems
-
History Source: Patient
All other systems: Reviewed and negative
EENT: Negative Hearing Loss
Abdomen/GI: Negative Incontinence of Stool
Genitourinary: Negative Incontinence
Musculoskeletal: Negative Back Pain or Neck Pain
Neuro: Negative Dizzy or Headache
Physical Exam
-
General: No Apparent Distress and Appears Stated Age
Eyes: OU Absent Papilledema, Able to visualize OU, Round OU, [place] Conjunctivae and No Ptosis
HEENT: Anicteric and Moist Mucous Membranes
Neck: Full Range of Motion
Respiratory: No Dyspnea
Cardiac: No JVD
GI: Non-distended
Skin: Unremarkable
Extremities: No Clubbing, No Cyanosis and No Edema
Extended Neurological Exam
Mood & Affect: Mood Unremarkable and Affect Unremarkable
Attention Span & Concentration: Awake, Alert and Interactive
Memory: Unremarkable
Tremor: Hand Tremor Absent and Head Tremor Absent
Speech: Quality Unremarkable and Quantity Unremarkable
Cranial Nerve II: Left Eye: Pupillary Size Unremarkable and Visual Herrera Grossly Intact
Cranial Nerve II: Right Eye: Pupillary Size Unremarkable and Visual Herrera Grossly Intact
Cranial Nerves III, IV, : Extraocular Movement: Grossly Intact
Cranial Nerve VII: Facial Symmetry: Normal Facial Symmetry
Cranial Nerve VIII: Hearing: Unremarkable Hearing to Normal Conversational Volume (And to direct testing)
Muscle Strength, Overall: Spontaneously Moves (All extremities)
Muscle Bulk & Tone: Bulk Unremarkable and Tone Unremarkable
Pronator Drift: No Drift in Upper Extremities
Touch Sensation: Unremarkable
Coordination: Reaches for Objects without Difficulty
Data Reviewed
-
CT-A: Report Reviewed
CT Head: Report Reviewed
MRI Head: Report Reviewed and Image Reviewed
Labs: Report Reviewed
Lipid Profile: Report Reviewed
HgbA1C: Pending
Reviewed with: Patient
Old Records: Summarized
Past History
Past History
ED Past Medical History: HTN, Hypercholesterolemia, Other (Osteoporosis, obstructive sleep apnea, COVID-19, transient ischemic attack January 2018, carpal tunnel syndrome steroid injection) and Other (leg cramping, sarcoidosis)
ED Past Surgical History: Gynecological and Orthopedic (Hip tumor removal 1966, right labral debridement, left shoulder arthroscopy August 2024)
Social History
Tobacco: Non-smoker
Alcohol: None
Drug: None
Personal:
Living: with family
Employment: Retired
Family History
Family History: CAD (Mother with coronary artery disease in her 60s however she was obese and a smoker)
Medications
-
Medications:
Generic Name Dose Route Start Last Admin
Trade Name Freq PRN Reason Stop Dose Admin
Acetaminophen 650 mg 09/04/24 22:55
Acetaminophen 650 Mg Rectal Suppository RECTAL 10/02/24 22:54
Q4HPRN PRN
LYNN, mild pain, or temp >100.4F
Acetaminophen 650 mg 09/04/24 22:55
Acetaminophen 325 Mg Tablet PO 10/02/24 22:54
Q4HPRN PRN
LYNN, mild pain, or temp >100.4F
Aspirin 81 mg 09/05/24 08:00
Aspirin 81 Mg Chewable Tablet PO 10/03/24 07:59
DAILY JAYDEN
Atorvastatin Calcium 40 mg 09/05/24 18:00
Atorvastatin (Lipitor) 40 Mg Tablet PO 10/03/24 17:59
QPM JAYDEN
Hydralazine HCl 5 mg 09/04/24 22:55
Hydralazine 20 Mg/Ml Vial IV 10/02/24 22:54
Q4HPRN PRN
SBP>220 or DBP>110
Losartan Potassium 25 mg 09/05/24 22:00
Losartan 25 Mg Tablet PO 10/03/24 21:59
HS JAYDEN
Meclizine HCl 25 mg 09/04/24 22:55
Meclizine 25 Mg Tablet PO 10/02/24 22:54
Q8HPRN PRN
dizziness
Sodium Chloride 0 flush 09/04/24 22:00
Sodium Chloride 0.9% (Flush) Syringe IV 10/02/24 21:59
PER PROTOCOL JAYDEN
[2024-09-05 08:39] LABS: Glycohemoglobin (HgbA1c) 6.1 % (4.0-5.6)
[2024-09-05] MEDS: LOW STRENGTH ASPIRIN 81 MG PO (09:37)
--- NOTE | 2024-09-05 09:51 | CM ---
Reviewed chart. Met with Mrs. Perez to review discharge plans. She states prior to admission she resides with her spouse in a two story home with two steps to enter. . She states she has a first floor set-up. She states prior to admission she
was independent with ambulation and adls. She states she does not have any DME in the home. She states she has a prescription plan and uses [facility]. The discharge plan is to return home with her spouse when medically stable.
--- NOTE | 2024-09-05 11:45 | PTCARENOTE ---
Discussed MRI w/ pt. Pt verbalized understanding of above.
--- NOTE | 2024-09-05 12:20 | W.PN.HOSP.TC ---
Today's Communication/Plan
-
Orthostatics
PT consult
Discharge
Assessment / Plan
Assessment / Plan
Gen-AAOx3, NAD
HEENT-NC, AT, anicteric, clear oral mm
Neck-supple
CV-reg, no M, +S1/S2
Lungs-clear B/L
Abd-soft, NT, ND
Ext-no edema
Musculoskeletal-no cyanosis, clubbing
Skin-warm and dry
Neuro-grossly non-focal
Psych-calm, cooperative
Vertigo -suspect benign paroxysmal positional vertigo. Await PT assessment. Recommend outpatient therapy. Check orthostatics. She states she had vertigo many years ago that was treated.
Brain MRI negative. No evidence of stroke. CTA head and neck unremarkable. Discontinue aspirin.
Essential hypertension/hypertensive urgency -resolved. Patient does not check her blood pressures at home. Recommend checking 3 times a week, close follow-up with PCP.
At home she is on telmisartan 20 mg daily. Anticipate she will also need to go home on hydrochlorothiazide 25 mg daily.
Hyperlipidemia -LDL 264, total cholesterol 370, triglycerides 230. She did not tolerate Crestor in the past due to myalgias. Give a trial of Lipitor. Patient agreeable.
Impaired fasting glucose -hemoglobin A1c 6.1%. Recommend diet, exercise, weight loss. Follow-up with PCP.
Full code
Dispo - stable for discharge home this afternoon after PT assessment. Outpatient follow-up.
Updated at the bedside.
32 minutes spent in discharge process.
Anticipated Discharge: Today
Subjective/Interval History
-
Date of Service: September 05, 2024
Patient seen and examined. Feeling better overall. Complaining of fatigue due to lack of sleep.
Objective Data
-
Labs:
Laboratory Results
09/05/24
03:07
Sodium 141
Potassium 4.3
Chloride 103
Carbon Dioxide 27
BUN 20 H
Creatinine 0.6
Glucose 99
Calcium 9.5
Vital Signs:
Vital Signs
Temp Pulse Resp BP Pulse Ox
98.1 F 67 16 165/83 97
09/05/24 11:31 09/05/24 10:00 09/05/24 11:31 09/05/24 08:39 09/05/24 11:31
Review of Systems
-
History Source: Patient
All other systems: Reviewed and negative
--- NOTE | 2024-09-05 12:29 | W.DS.TRANS ---
DC Summary - [employer]
-
Discharge Instructions:
Discharge Diagnosis/Procedures Benign paroxysmal positional vertigo,
uncontrolled hypertension, hyperlipidemia
Diet Low Fat,Low Cholesterol
Activity No restrictions
Driving Restrictions As prior to admission
Bathing Restrictions None
Other Services PT
Instructions:
Stand-Alone Forms:
Changes to Home Medications: No
Discharge Medications:
DC Medications w/original date entered in [employer]
telmisartan 40 mg tablet 20 mg PO HS 08/03/24
atorvastatin 80 mg tablet 80 mg PO QPM #30 tabs 09/05/24
hydrochlorothiazide 25 mg tablet 25 mg PO DAILY #30 tabs 09/05/24
Home Medication Changes
Pending Results: No
[2024-09-05] MEDS: ORETIC 25 MG PO (13:18)
== END 2024-09-05 14:02 | disposition home or self-care (01) ==
LOC: IVU 22:25
PROVIDERS: Physician Assistant; Physician Assistant Medical; ADMITTING PHYSICIAN Internal Medicine; ATTENDING PHYSICIAN Hospitalist; CONSULT PHYSICIAN Psychiatry & Neurology Neurology; EMERGENCY PHYSICIAN Emergency Medicine; FAMILY PHYSICIAN Family Medicine
DX: H81.10 Benign paroxysmal vertigo, unspecified ear (principal); I16.0 Hypertensive urgency; R73.01 Impaired fasting glucose; R53.83 Other fatigue; E78.00 Pure hypercholesterolemia, unspecified; I10 Essential (primary) hypertension; R11.0 Nausea; M81.0 Age-related osteoporosis without current pathological fracture; G47.33 Obstructive sleep apnea (adult) (pediatric); D86.9 Sarcoidosis, unspecified; R91.1 Solitary pulmonary nodule; R51.9 Headache, unspecified; M50.321 Other cervical disc degeneration at C4-C5 level; G31.9 Degenerative disease of nervous system, unspecified; I67.82 Cerebral ischemia; W06.XXXA Fall from bed, initial encounter; Y93.89 Activity, other specified; Y92.003 Bedroom of unspecified non-institutional (private) residence as the place of occurrence of the external cause; Z96.612 Presence of left artificial shoulder joint; Z96.611 Presence of right artificial shoulder joint; Z82.49 Family history of ischemic heart disease and other diseases of the circulatory system; Z86.73 Personal history of transient ischemic attack (TIA), and cerebral infarction without residual deficits; Z86.16 Personal history of COVID-19
CPT/HCPCS: 70496; 70498; 70551; 80048; 80053; 80061; 82607; 82728; 82746; 82962; 83036; 83735; 84443; 85025; 85652; 86803; 93005; 96374; 96375; 97112; 97163; 97166; 99291; G0378; Q9967

== ENCOUNTER → 2024-10-10 11:00 | Outpatient (REF) | payer MEDICARE, OTHER, SELFPAY | LOC: DHSLP 11:00 | PROVIDERS: ATTENDING PHYSICIAN Internal Medicine | DX: G47.33 Obstructive sleep apnea (adult) (pediatric) (principal); R09.02 Hypoxemia | CPT/HCPCS: 95800 ==

== ENCOUNTER → 2024-11-08 14:01 | Outpatient (REF) | payer MEDICARE, OTHER, SELFPAY | LOC: DHSLP 14:01 | PROVIDERS: ATTENDING PHYSICIAN Internal Medicine Critical Care Medicine; FAMILY PHYSICIAN Nurse Practitioner Family | DX: G47.33 Obstructive sleep apnea (adult) (pediatric) (principal) | CPT/HCPCS: 95800 ==

== ENCOUNTER → 2025-03-15 18:31 | Outpatient (REF) | payer MEDICARE, OTHER, SELFPAY | LOC: RAD 18:31 | PROVIDERS: ATTENDING PHYSICIAN Internal Medicine Critical Care Medicine; FAMILY PHYSICIAN Family Medicine | DX: R91.1 Solitary pulmonary nodule (principal) | CPT/HCPCS: 71046 ==

== ENCOUNTER → 2025-06-05 13:37 | Outpatient (REF) | payer MEDICARE, OTHER, SELFPAY | LOC: RAD 13:37 | PROVIDERS: ATTENDING PHYSICIAN Family Medicine | DX: M81.0 Age-related osteoporosis without current pathological fracture (principal) | CPT/HCPCS: 77080 ==